=== PATIENT | female | born 1965 | race Caucasian/White ===

== ENCOUNTER → 2020-01-16 11:01 | Outpatient (BNVA) | payer BC, SELFPAY | PROVIDERS: Family Provider Family Medicine; PCP Family Medicine; Visit Provider Nurse Practitioner Women's Health | DX: N95.0 Postmenopausal bleeding (principal) | CPT/HCPCS: 76830 ==

== ENCOUNTER → 2020-01-24 08:48 | Outpatient (BNVA) | payer BC, SELFPAY | PROVIDERS: Family Provider Family Medicine; PCP Family Medicine; Visit Provider Nurse Practitioner Women's Health | DX: N95.0 Postmenopausal bleeding (principal) | CPT/HCPCS: 88305 ==

== ENCOUNTER → 2020-03-22 15:32 | Outpatient (BNVA) | payer BC, SELFPAY | PROVIDERS: PCP Family Medicine; Visit Provider Surgery | DX: Z11.59 Encounter for screening for other viral diseases (principal) | CPT/HCPCS: 87635 ==

== ENCOUNTER 2020-03-26 06:59 | Day surgery (SDC) | payer BC, SELFPAY ==
[2020-03-22 15:15] VITALS: BMI 24.5
[2020-03-26 07:08] VITALS: BP 123/89; PULSE 80; RESP 18; TEMP 36.4; O2SAT 98
--- NOTE | 2020-03-26 07:21 | ANES.PREANE2 ---
Pre-Anesthetic Assessment Pre-Anesthetic Assessment: Height/Weight: Height 1.66 m Weight 68.039 kg Temp Pulse Resp BP Pulse Ox 97.5 F L 80 18 123/89 98 03/26/20 07:08 03/26/20 07:08 03/26/20 07:08 03/26/20 07:08 03/26/20 07:08 Preop Diagnosis: epigastric pain hematochezia Proposed Procedure: Operation Date: 03/26/20 08:30 Proposed Procedures p EGD [id number] K21.9 Z12.11(Not Applicable) - Frankie Hassan MD s Colonoscopy(Not Applicable) - Frankie Hassan MD Familial anesthetic complications: NOne Last intake: Intake Last Liquid Date 03/25/20 Last Liquid Time 23:30 Last Solid Date 03/24/20 Last Solid Time 22:00 Social: Social History: Alcohol and Tobacco Comment: occassional Exam: Pre-Anes Outpt Exam: alert, oriented x 3, clear to auscultation bilaterally and regular rate & rhythm Airway: Cervical ROM: WNL MP: 2 Dentition: Full Anesthetic Plan: ASA status: 1 Anesthesia: MAC PFSH Anesthesia PFSH: Medical History (Updated 03/11/20 @ 16:22 by Damaris Valentino LPN) Hyperlipidemia Surgical History H/O Achilles tendon repair H/O breast augmentation 1--- silicone implants 2--- saline revision H/O colonoscopy yrs ago H/O hemorrhoidectomy (~2008) H/O rhinoplasty (~06/2019) H/O tubal ligation History of laparoscopy (~1998) endometriosis Family History Grandmother Stroke Maternal grandmother Family history of thyroid problem Maternal grandmother Heart disease Maternal grandmother Grandfather Lung cancer Maternal grandfather Denies family history of Colon cancer Ovarian cancer Breast cancer Anesthesia complication Bleeding disorder Uterine cancer Social History Smoking and tobacco status: former smoker Alcohol intake: current Alcohol intake frequency: few times a week Alcohol type: wine Household members: spouse Marital status: Current occupational status: employed History of recent travel: No Additional social history: - Tobacco use: Former; quit 2011; still smokes socially Alcohol use: Social Drug use: Denies Data Anesthesia Cardiac Studies: No Data to Display
[2020-03-26] MEDS: sodium chloride 0.9% 1,000 ML 30 ML IV (07:40)
[2020-03-26] MEDS: lidocaine 1% INJ 20 mL INTRADERMA (08:00)
--- NOTE | 2020-03-26 08:47 | W.PM.OPSUD ---
Surgery/Procedure H&P Update DATE OF PROCEDURE: March 26, 2020 DATE H&P PERFORMED: 03/11/20 H&P UPDATE INFORMATION: I have reviewed H&P completed within last 30 days, I have examined patient prior to procedure and No changes to prior documentation PREOP DIAGNOSIS: epigastric pain hematochezia PLANNED PROCEDURE: Operation Date: 03/26/20 08:30 Proposed Procedures p EGD [id number] K21.9 Z12.11(Not Applicable) - Frankie Hassan MD s Colonoscopy(Not Applicable) - Frankie Hassan MD
[2020-03-26 09:27] VITALS: BP 110/75; PULSE 74; RESP 18; TEMP 36.3; O2SAT 97
[2020-03-26 09:44] VITALS: BP 114/68; PULSE 72; RESP 18; O2SAT 99
--- NOTE | 2020-03-26 10:06 | ANE.PACU2 ---
Inpatient post-anesthesia follow up: Airway intact: Yes Vital signs: Temperature 97.3 F Pulse Rate 72 Respiratory Rate 18 Blood Pressure 114/68 Pulse Oximetry 99 Oxygen Delivery Me thod Room Air Oxygen Flow Rate 3 Fraction of Inspir ed Oxygen Hydration adequate: Yes Nausea and vomiting: No Pain level: 1 Mental status: Baseline
== END 2020-03-26 10:02 | disposition home or self-care (01) ==
PROVIDERS: PCP Family Medicine; Visit Provider Surgery
PROC: 0DJ08ZZ Inspection of Upper Intestinal Tract, Via Natural or Artificial Opening Endoscopic (ICD-10-PCS; CPT 43235; principal; 2020-03-26 08:30)
PROC: 0DJD8ZZ Inspection of Lower Intestinal Tract, Via Natural or Artificial Opening Endoscopic (ICD-10-PCS; CPT 45378; 2020-03-26 08:30)
DX: K92.1 Melena (principal); R10.13 Epigastric pain; K64.8 Other hemorrhoids; K29.70 Gastritis, unspecified, without bleeding; Z87.891 Personal history of nicotine dependence; E78.5 Hyperlipidemia, unspecified
CPT/HCPCS: 12345; 43239; 45378; 88305; J2704; J7030

== ENCOUNTER → 2023-11-23 14:43 | Outpatient (BNVA) | payer BC, SELFPAY | PROVIDERS: PCP Family Medicine; Visit Provider Nurse Practitioner Women's Health | DX: Z12.4 Encounter for screening for malignant neoplasm of cervix (principal) | CPT/HCPCS: 87624 ==

== ENCOUNTER → 2024-01-07 12:02 | Outpatient (BNVA) | payer BC, SELFPAY | PROVIDERS: PCP Family Medicine; Visit Provider Emergency Medicine | DX: J02.9 Acute pharyngitis, unspecified (principal) | CPT/HCPCS: 87880 ==

== ENCOUNTER → 2024-06-14 09:12 | Outpatient (BNVA) | payer OTHER, SELFPAY | PROVIDERS: PCP Family Medicine; Visit Provider Registered Nurse Neonatal Intensive Care | DX: R39.9 Unspecified symptoms and signs involving the genitourinary system (principal); N39.0 Urinary tract infection, site not specified | CPT/HCPCS: 81000; 87086 ==

== ENCOUNTER → 2024-06-24 12:54 | Outpatient (BNVA) | payer OTHER, SELFPAY | PROVIDERS: PCP Family Medicine; Visit Provider Registered Nurse Neonatal Intensive Care | DX: R39.9 Unspecified symptoms and signs involving the genitourinary system (principal); N30.00 Acute cystitis without hematuria | CPT/HCPCS: 81000; 87086 ==

== ENCOUNTER → 2024-07-10 10:22 | Outpatient (BNVA) | payer OTHER, SELFPAY | PROVIDERS: PCP Family Medicine; Visit Provider Family Medicine | DX: Z00.00 Encounter for general adult medical examination without abnormal findings (principal); R82.90 Unspecified abnormal findings in urine; L30.9 Dermatitis, unspecified; E55.9 Vitamin D deficiency, unspecified; E78.2 Mixed hyperlipidemia; R79.89 Other specified abnormal findings of blood chemistry | CPT/HCPCS: 80053; 80061; 81000; 82306; 82607; 84443; 85025 ==